=== PATIENT | female | born 1980 | race African-American/Black ===

== ENCOUNTER 2018-08-27 08:06 | Emergency (ER) | payer OTHER ==
[~2018-08-27] VITALS: Ht 154.9 cm; Wt 53.5 kg
[2018-08-27] MEDS ORDERED: INDERAL LA80 MG (08:33)
[2018-08-27] MEDS ORDERED: AMPHETAMINE SAL30 MG (08:36)
== END 2018-08-27 13:32 | disposition home or self-care (01) ==
LOC: ER 08:06
DX: S92.331A Displaced fracture of third metatarsal bone, right foot, initial encounter for closed fracture (principal); W18.39XA Other fall on same level, initial encounter; Y93.89 Activity, other specified; Y92.69 Other specified industrial and construction area as the place of occurrence of the external cause; Y99.8 Other external cause status